=== PATIENT | female | born 1970 | race American Indian/Alaskan Native ===

== ENCOUNTER 2016-10-18 19:12 | Emergency (ER) | payer OTHER ==
[2016-10-18 19:55] VITALS: BP 150/85
[2016-10-18] MEDS ORDERED: ZOFRAN IV ONE (20:02)
[2016-10-18] MEDS ORDERED: MORPHINE IV ONE (20:02)
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
[2016-10-18 20:57] LABS: Basophils % (Auto) 1.5 % (0.0-1.8); Eosinophils % (Auto) 2.2 % (0.0-4.3); Hematocrit 42.1 % (30.3-42.9); Hemoglobin 13.7 gm/dl (10.1-14.3); Mean Corpuscular HGB Conc 33 % (30-34); Mean Corpuscular Hemoglobin 28 pg (28-32); Mean Corpuscular Volume 86 fl (79-97); Platelet Count 321 K/mm3 (140-440); Red Blood Count 4.92 M/mm3 (3.65-5.03); Red Cell Distribution Width 14.1 % (13.2-15.2); White Blood Count 12.8 K/mm3 (4.5-11.0)
[2016-10-18 21:04] LABS: Alanine Aminotransferase 32 units/L (7-56); Albumin 4.1 g/dL (3.9-5); Albumin/Globulin Ratio 1.3 %; Alkaline Phosphatase 101 units/L (35-129); Anion Gap 19 mmol/L; BUN/Creatinine Ratio 16.66; Bilirubin,Total < 0.20 mg/dL (0.1-1.2); Blood Urea Nitrogen 10 mg/dL (7-17); Carbon Dioxide 21 mmol/L (22-30); Chloride 104.9 mmol/L (98-107); Glucose 98 mg/dL (65-100); Potassium 4.6 mmol/L (3.6-5.0); Sodium 140 mmol/L (137-145); Total Protein 7.2 g/dL (6.3-8.2)
[2016-10-18] MEDS ORDERED: NACL ONE (21:20)
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
[2016-10-18] MEDS ORDERED: NORCO 5/325 PO ONE (22:48)
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
== END 2016-10-19 02:31 | disposition home or self-care (01) ==
LOC: ED 19:12
DX: S09.90XA Unspecified injury of head, initial encounter (principal); S39.012A Strain of muscle, fascia and tendon of lower back, initial encounter; S60.212A Contusion of left wrist, initial encounter; S30.1XXA Contusion of abdominal wall, initial encounter; D64.9 Anemia, unspecified; F17.200 Nicotine dependence, unspecified, uncomplicated; V45.6XXA Car passenger injured in collision with railway train or railway vehicle in traffic accident, initial encounter; Y93.89 Activity, other specified; Y99.8 Other external cause status; Y92.488 Other paved roadways as the place of occurrence of the external cause
CPT/HCPCS: 36415; 70450; 72070; 72100; 72125; 73100; 73590; 74177; 80053; 85025; 86850; 86900; 86901; 96374; 96375; 99284; J2270; J2405; Q9967